=== PATIENT | female | born 1985 | race Two or more races ===

== ENCOUNTER 2022-05-05 12:44 | Emergency (ER) | payer OTHER ==
[2022-05-05] MEDS ORDERED: Lisinopril 20 MG Tab PO ONE (13:54)
[2022-05-05] MEDS ORDERED: Lisinopril 20 MG Tab ONE ×2 (13:59→14:01)
[2022-05-06] MEDS ORDERED: Lisinopril 20 MG Tab PO SCH (09:00)
== END 2022-05-05 14:00 | disposition home or self-care (01) ==
LOC: VM.ED 12:44
DX: R04.0 Epistaxis (principal); I10 Essential (primary) hypertension
CPT/HCPCS: 30901; 99283; 99284; A9270